=== PATIENT | female | born 1935 | race Asian ===

== ENCOUNTER → 2017-05-25 16:19 | Outpatient (CLI) | payer MEDICARE, BC, SELFPAY | PROVIDERS: Family Provider Family Medicine Geriatric Medicine; PCP Family Medicine Geriatric Medicine; Visit Provider Nurse Practitioner Adult Health | DX: N39.0 Urinary tract infection, site not specified (principal) | CPT/HCPCS: 87086 ==

== ENCOUNTER → 2018-04-11 14:47 | Outpatient (CLI) | payer MEDICARE, BC, SELFPAY ==
[2018-04-11 17:19] LABS: Absolute Lymphocyte Count 1.14 X10^3/ul (0.83-4.51); Absolute Neutrophil Count 4.3 X10^3/uL (2.0-7.7); Basophil# 0.02 X10^3/uL; Basophil% 0.3 % (0-1); Eosinophil# 0.09 X10^3/uL; Eosinophils% 1.5 % (0-5); Hematocrit 38.9 % (37-47); Hemoglobin 12.1 g/dl (12.0-15.0); Lymphocyte # 1.14 X10^3/ul (4.0); Lymphocyte % 19.2 % (19-41); Mean Corp Hgb Conc 31.1 g/gl (32-36); Mean Corpuscular Hgb 29.9 pg (27.0-32.0); Mean Platelet Vol. 11.2 fl (6.2-12.0); Monocyte# 0.35 X10^3/uL; Monocyte% 5.9 % (0-10); Neutrophil # 4.32 X10^3/uL (2.7-7.7); Neutrophil % 72.9 % (47-70); Platelet Count 213 K/mm3 (150-450); RBC Distribution Width CV 13.7 % (11.6-14.6); RBC Distribution Width SD 46.3 fl (35.1-43.9); Red Blood Count 4.05 M/mm3 (4.2-5.4); White Blood Count 5.9 K/mm3 (4.4-11.0)
[2018-04-11 17:30] LABS: POSITIVE COUNT NO; POSITIVE DIFFERENTIAL NO; POSITIVE MORPHOLOGY NO
[2018-04-11 17:33] LABS: ALB/GLOB Ratio 0.9 RATIO (0.9-2.4); AST(SGOT) 22 U/L (15-37); Alanine Aminotransfer ALT/SGPT 18 U/L (13-56); Albumin, Serum 3.4 g/dL (3.2-5.0); Alkaline Phosphatase 78 U/L (45-117); Anion Gap 8 (5-15); BUN 23 mg/dL (7-18); BUN/Creat Ratio 26.4 RATIO (10-20); Calcium,Total 8.7 mg/dL (8.5-10.1); Chloride 104 mmol/L (98-107); Creatinine, Serum 0.87 mg/dL (0.55-1.02); EST Glomerular Filtration Rate 66 mL/min (>60); Est Glom Filt Rate - Afr Amer 80 mL/min (>60); Globulin 3.9 g/dL (2.2-4.2); Glucose 86 mg/dL (74-106); Potassium 4.1 mmol/L (3.5-5.1); Protein, Total 7.3 g/dL (6.4-8.2); Sodium Level 144 mmol/L (136-145); Thyroid Stim Hormone (TSH) 1.97 uIU/mL (0.358-3.74)
[2018-04-11 17:40] LABS: Vitamin D,25 Hydroxy 25.9 ng/mL (29.95-100.01)
== END ==
PROVIDERS: Family Provider Family Medicine Geriatric Medicine; PCP Family Medicine Geriatric Medicine; Visit Provider Family Medicine Geriatric Medicine
DX: E55.9 Vitamin D deficiency, unspecified (principal); R53.83 Other fatigue
CPT/HCPCS: 36415; 80053; 82306; 84443; 85025

== ENCOUNTER → 2018-10-01 12:33 | Outpatient (CLI) | payer MEDICARE, BC, MEDICAID, SELFPAY ==
--- NOTE | 2018-10-01 12:40 | RAD_ITS ---
STUDY: X-RAY - PELVIS AND LEFT HIP REASON FOR EXAM: Female, 83 years old. Left hip pain. TECHNIQUE: 3 views of the pelvis and hip. COMPARISON: None. FINDINGS: There is a non-specific bowel gas pattern. Normal visualized soft tissue structures. There are degenerative changes in the lower lumbar spine. Normal bilateral iliac wings, sacroiliac joints and visualized sacrum. Normal bilateral superior and inferior pubic rami. Normal pubic symphysis. Normal bilateral ischial tuberosities. Normal visualized femoral head. Normal acetabulum. Normal hip joint. RAD/HIP, UNI W/ Pelvis 2-3 Views IMPRESSION: Degenerative changes in the lower lumbar spine. Unremarkable left hip joint. Electronically Signed: Ger Zamora MD at 14:18 EDT Tel , Service support ,
== END ==
PROVIDERS: Family Provider Family Medicine Geriatric Medicine; PCP Family Medicine Geriatric Medicine; Referring Provider Family Medicine Geriatric Medicine; Visit Provider Family Medicine Geriatric Medicine
DX: M25.559 Pain in unspecified hip (principal)
CPT/HCPCS: 73502

== ENCOUNTER → 2019-03-18 15:26 | Outpatient (CLI) | payer MEDICARE, BC, SELFPAY ==
--- NOTE | 2019-03-18 16:00 | MRI_ITS ---
STUDY: MRI LUMBAR SPINE WITHOUT CONTRAST REASON FOR EXAM: Female, 84 years old. Lower back pain TECHNIQUE: Standardized fat and water weighted pulse sequences were obtained in the sagittal and axial planes. COMPARISON: None FINDINGS: T12-L1: Endplate spondylosis. Decreased disc height and small circumferential disc bulge. Degenerative changes of the bilateral facet joints more prominent on the left side. Mild narrowing of the central canal. Mild right and severe left intervertebral neural foraminal narrowing. Normal lumbar lordosis. There is 42 degrees dextroscoliosis of the lumbar spine. Normal conus medullaris that terminates at the L1 level. L1-2: Endplate spondylosis. Decreased disc height and small circumferential disc bulge. Degenerative changes of the bilateral facet joints more prominent on the left side. Mild narrowing of the central canal. Mild right and severe left intervertebral neural foraminal narrowing. L2-3: Endplate spondylosis. Decreased disc height and small circumferential disc bulge. Degenerative changes of the bilateral facet joints more prominent on the left side. Mild narrowing of the central canal. Mild right and severe left intervertebral neural foraminal narrowing. L3-4: Endplate spondylosis. Decreased disc height and small circumferential disc bulge. Degenerative changes of the bilateral facet joints more prominent on the right side. Moderate narrowing of the central canal. Mild left and severe right intervertebral neural foraminal narrowing. L4-5: Endplate spondylosis. Decreased disc height and small circumferential disc bulge. Degenerative changes of the bilateral facet joints more prominent on the right side. Moderate narrowing of the central canal. Mild left and severe right intervertebral neural foraminal narrowing. L5-S1: Endplate spondylosis. Decreased disc height and small circumferential disc bulge. Degenerative changes of the bilateral facet joints more prominent on the right side. Mild narrowing of the central canal. Mild left and severe right intervertebral neural foraminal narrowing. Normal visualized sacral ala. There are multiple bilateral renal cysts the largest measuring 3 cm is in the right kidney. MRI/Spine Lumbar (Routine) IMPRESSION: Multilevel degenerative changes, as described above. Electronically Signed: Gerri Chanel, at 5:55 EST Tel , Service support ,
== END ==
PROVIDERS: Family Provider Family Medicine Geriatric Medicine; PCP Family Medicine Geriatric Medicine; Referring Provider Family Medicine Geriatric Medicine; Visit Provider Family Medicine Geriatric Medicine
DX: M48.061 Spinal stenosis, lumbar region without neurogenic claudication (principal)
CPT/HCPCS: 72148

== ENCOUNTER → 2019-04-17 14:41 | Outpatient (CLI) | payer MEDICARE, BC, SELFPAY ==
[2019-03-19 08:53] VITALS: BMI 25.6
[2019-04-17 17:31] LABS: Absolute Lymphocyte Count 0.95 X10^3/uL (0.83-4.51); Absolute Neutrophil Count 5.1 X10^3/uL (2.0-7.7); Basophil# 0.02 X10^3/uL; Basophil% 0.3 % (0-1); Eosinophil# 0.11 X10^3/uL; Eosinophils% 1.6 % (0-5); Hematocrit 37.8 % (37-47); Hemoglobin 11.7 g/dL (12.0-15.0); Lymphocyte # 0.95 X10^3/ul (4.0); Mean Corpuscular Hgb 29.5 pg (27.0-32.0); Mean Corpuscular Volume 95.5 fL (81-99); Mean Platelet Vol. 11.2 fl (6.2-12.0); Monocyte# 0.52 X10^3/uL; Monocyte% 7.7 % (0-10); NRBC Flagged by Analyzer 0 % (0-5); Neutrophil # 5.14 X10^3/uL (2.7-7.7); Neutrophil % 75.8 % (47-70); Platelet Count 220 K/mm3 (150-450); RBC Distribution Width CV 13.8 % (11.6-14.6); RBC Distribution Width SD 47.8 fl (35.1-43.9); Red Blood Count 3.96 M/mm3 (4.2-5.4); White Blood Count 6.8 K/mm3 (4.4-11.0)
[2019-04-17 18:02] LABS: ALB/GLOB Ratio 0.9 RATIO (0.9-2.4); AST(SGOT) 27 U/L (15-37); Alanine Aminotransfer ALT/SGPT 20 U/L (13-56); Albumin, Serum 3.3 g/dL (3.2-5.0); Alkaline Phosphatase 91 U/L (45-117); Anion Gap 5 (5-15); BUN 25 mg/dL (7-18); BUN/Creat Ratio 29.1 RATIO (10-20); Calcium,Total 8.5 mg/dL (8.5-10.1); Chloride 105 mmol/L (98-107); Creatinine, Serum 0.86 mg/dL (0.55-1.02); EST Glomerular Filtration Rate 67 mL/min (>60); Est Glom Filt Rate - Afr Amer 81 mL/min (>60); Globulin 3.8 g/dL (2.2-4.2); Glucose 104 mg/dL (74-106); Potassium 4.2 mmol/L (3.5-5.1); Protein, Total 7.1 g/dL (6.4-8.2); Sodium Level 142 mmol/L (136-145); Thyroid Stim Hormone (TSH) 1.91 uIU/mL (0.358-3.74)
== END ==
PROVIDERS: Family Provider Family Medicine Geriatric Medicine; PCP Family Medicine Geriatric Medicine; Visit Provider Family Medicine Geriatric Medicine
DX: I10 Essential (primary) hypertension (principal); E55.9 Vitamin D deficiency, unspecified
CPT/HCPCS: 36415; 80053; 82306; 84443; 85025

== ENCOUNTER → 2019-06-25 17:55 | Outpatient (CLI) | payer MEDICARE, BC, SELFPAY ==
[2019-03-19 08:53] VITALS: BMI 25.6
[2019-06-25 18:57] LABS: Amphetamine Urine VISTA NEGATIVE (<1000 ng/mL); Barbiturate Urine VISTA NEGATIVE (< 200 ng/mL); Benzodiazepine Urine VISTA NEGATIVE (< 200 ng/mL); Cocaine Urine VISTA NEGATIVE (< 300 ng/mL); Ecstacy Urine VISTA NEGATIVE (< 500 ng/mL); Methadone Urine VISTA NEGATIVE (< 300 ng/mL); PCP Urine VISTA NEGATIVE (< 25 ng/mL); THC Urine VISTA NEGATIVE (< 50 ng/mL); Vista UDS pH Range 7
== END ==
PROVIDERS: PCP Family Medicine Geriatric Medicine; Referring Provider Anesthesiology Pain Medicine; Visit Provider Anesthesiology Pain Medicine
DX: F11.20 Opioid dependence, uncomplicated (principal)
CPT/HCPCS: 80307

== ENCOUNTER → 2020-04-21 09:24 | Outpatient (CLI) | payer MEDICARE, BC, SELFPAY ==
[2019-03-19 08:53] VITALS: BMI 25.6
[2020-04-21 15:43] LABS: ALB/GLOB Ratio 0.9 RATIO (0.9-2.4); AST(SGOT) 26 U/L (15-37); Alanine Aminotransfer ALT/SGPT 21 U/L (13-56); Albumin, Serum 3.6 g/dL (3.2-5.0); Alkaline Phosphatase 91 U/L (45-117); Anion Gap 4 (5-15); BUN 22 mg/dL (7-18); BUN/Creat Ratio 25.9 RATIO (10-20); Chloride 103 mmol/L (98-107); Creatinine, Serum 0.85 mg/dL (0.55-1.02); EST Glomerular Filtration Rate 68 mL/min (>60); Est Glom Filt Rate - Afr Amer 82 mL/min (>60); Globulin 3.8 g/dL (2.2-4.2); Glucose 106 mg/dL (74-106); Potassium 3.9 mmol/L (3.5-5.1); Protein, Total 7.4 g/dL (6.4-8.2); Sodium Level 140 mmol/L (136-145); Thyroid Stim Hormone (TSH) 1.82 uIU/mL (0.358-3.74)
[2020-04-21 15:44] LABS: Vitamin D,25 Hydroxy 21.7 ng/mL
[2020-04-21 15:47] LABS: Absolute Lymphocyte Count 1.32 X10^3/uL (0.83-4.51); Absolute Neutrophil Count 6.5 X10^3/uL (2.0-7.7); Basophil# 0.03 X10^3/uL; Basophil% 0.4 % (0-1); Eosinophil# 0.08 X10^3/uL; Eosinophils% 0.9 % (0-5); Hematocrit 44.9 % (37-47); Hemoglobin 13.8 g/dL (12.0-15.0); Lymphocyte # 1.32 X10^3/ul (4.0); Lymphocyte % 15.6 % (19-41); Mean Corp Hgb Conc 30.7 g/dL (32-36); Mean Corpuscular Hgb 29.6 pg (27.0-32.0); Mean Corpuscular Volume 96.1 fL (81-99); Mean Platelet Vol. 11.9 fl (6.2-12.0); Monocyte# 0.46 X10^3/uL; Monocyte% 5.5 % (0-10); NRBC Flagged by Analyzer 0 % (0-5); Neutrophil # 6.51 X10^3/uL (2.7-7.7); Neutrophil % 77.1 % (47-70); Platelet Count 197 K/mm3 (150-450); RBC Distribution Width CV 13.2 % (11.6-14.6); RBC Distribution Width SD 46.4 fl (35.1-43.9); Red Blood Count 4.67 M/mm3 (4.2-5.4); White Blood Count 8.4 K/mm3 (4.4-11.0)
== END ==
PROVIDERS: PCP Family Medicine Geriatric Medicine; Visit Provider Family Medicine Geriatric Medicine
DX: I10 Essential (primary) hypertension (principal); E55.9 Vitamin D deficiency, unspecified
CPT/HCPCS: 36415; 80053; 82306; 84443; 85025

== ENCOUNTER 2020-05-04 15:21 | Emergency (ER) | payer MEDICARE, BC, SELFPAY ==
[2019-03-19 08:53] VITALS: BMI 25.6
[2020-05-04 15:21] VITALS: BP 146/82; PULSE 95; RESP 17; TEMP 36.8; O2SAT 93; BMI 23.8
--- NOTE | 2020-05-04 15:47 | ED.VIS.GEN ---
History of Present Illness Chief Complaint: Back Narrative: This patient is an 85-year-old female who presents with severe back pain. 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 She is in the process of enrolling in hospice. She has a history of chronic back pain and she sees pain management for this. She takes 7-1/2 mg of hydrocodone 3 times a day. She also had an epidural injection 2 weeks ago. More recently her pain has been uncontrolled. She called the office and was advised to come to the emergency department. Her pain does radiate into both legs left more than right. She has no urinary retention or fecal incontinence. She has had no prior back surgeries. No abdominal pain or fever. Past Medical History - Allergies and Home Meds Allergies/Adverse Reactions: Allergies No Known Allergies Allergy (Verified 05/04/20 15:21) Primary Care Physician: Eben Camarillo Chi, MD [Primary Care Provider] - Past Medical History: - - ALS, chronic back pain Surgical History: - - g tube, Smoking Status: Never smoker - Family History Maternal Family History: Reports: No pertinent history Paternal Family History: Reports: No pertinent history Review of Systems All systems negative except as indicated General: Denies: Fever Eyes: Denies: Visual changes - bilaterally Cardiovascular: Denies: Chest pain Respiratory: Reports: Dyspnea - Chronic related to ALS Gastrointestinal: Denies: Nausea, Vomiting Musculoskeletal: Reports: Back pain, Extremity Pain Skin: Denies: Rash Hematologic: Denies: Easy bruising Allergy: Denies: Uticaria Physical Exam Vital Signs/Narrative: Vital Signs Temp Pulse Resp BP Pulse Ox 05/04/20 15:21 98.3 F 95 17 146/82 H 93 Inital Vital Signs reviewed: Yes General: Well nourished Head: Normocephalic Eyes: EOMI ENT: Moist mucous membranes Neck: Supple Cardiovascular: Regular rate Respiratory: No distress Abdomen: Soft Back: - - Bilateral paraspinal lumbar pain on palpation Skin: Normal color Neurological: Alert, - - Normal strength and sensation of the lower extremities 5 out of 5 dorsiflexion, plantarflexion Psychological: Normal affect Diagnostic/Tx/Re-eval - Medical Decision Making Patient was given an intramuscular morphine here. I did speak to the patient's pain management physician, Dr. Manning. He agreed with this treatment and we will increase the patient's hydrocodone from 3 times a day to 4 times a day. I will also put the patient on oral steroid. Patient can be seen by pain management next week. Patient discharged. ED Disposition - Plan for ED Patient: Disposition: Home or Assisted Living Diagnosis: Acute exacerbation of chronic low back pain Instructions: ED Back Pain (Acute or Chronic) Prescriptions: MethylPREDNISolone DosePak [Medrol DosePak] 4 mg PO UD #1 box Prescription Printed Referrals: Eben Camarillo Chi, MD [Primary Care Provider] - Felicita Manning MD [STAFF PHYSICIAN] - Additional Instructions: Increase your hydrocodone tablets from 3 times daily to 4 times daily, 1 tablet every 6 hours. Follow-up with pain management next week. Return for any new or worsening symptoms.
[2020-05-04] MEDS: morphine 8 MG/ML Syringe IM (15:50)
== END 2020-05-04 16:08 | disposition home or self-care (01) ==
LOC: ED 15:59
PROVIDERS: Emergency Provider Emergency Medicine; PCP Family Medicine Geriatric Medicine
DX: G89.29 Other chronic pain (principal); M54.5 Low back pain; G12.21 Amyotrophic lateral sclerosis
CPT/HCPCS: 96372; 99282